=== PATIENT | female | born 1990 | race American Indian/Alaskan Native ===

== ENCOUNTER 2018-02-23 12:46 | Emergency (ER) | payer MEDICARE, MEDICAID ==
[2018-02-23 12:46] VITALS: BMI 25.7
[2018-02-23 13:28] LABS: SQUAMOUS EPITHIAL 15 /hpf (0-5); URINE BACTERIA MANY (<OCC); URINE BILIRUBIN NEGATIVE (NEGATIVE); URINE BLOOD NEGATIVE (NEGATIVE); URINE CLARITY Hazy (Clear); URINE COLOR Yellow (YELLOW); URINE GLUCOSE (UA) NORMAL (Normal); URINE LEUKOCYTE ESTERASE TRACE Leu/uL (Negative); URINE PROTEIN NEGATIVE (NEGATIVE); URINE UROBILINOGEN NORMAL mg/dL (0.2-1.0)
[2018-02-23 13:29] LABS: HCG,QUALITATIVE URINE POSITIVE (NEGATIVE)
[2018-02-23 13:48] LABS: BASO # 0.1 K/uL (0.0-0.2); BASO % 0.7 % (0.0-2.0); EOS # 0.1 K/uL (0.0-0.7); HEMOGLOBIN 11.6 g/dL (11.0-16.0); LYMPH # 2.1 K/uL (1.0-4.3); LYMPH % 25.8 % (20.0-40.0); MEAN CELL VOLUME 83.3 fL (81.0-99.0); MEAN CORPUSCULAR HEMOGLOBIN 28.3 pg (27.0-31.0); MEAN CORPUSCULAR HGB CONC 33.9 g/dL (33.0-37.0); MEAN PLATELET VOLUME 8.5 fL (7.2-11.7); MONO # 0.5 K/uL (0.0-0.8); MONO % 6.2 % (0.0-10.0); NEUT # 5.4 K/uL (1.8-7.0); NEUT % 66.3 % (50.0-75.0); RBC 4.1 Mil/uL (3.80-5.20); RED CELL DISTRIBUTION WIDTH 16.9 % (11.5-14.5); WHITE BLOOD COUNT 8.1 K/uL (4.8-10.8)
[2018-02-23 14:06] LABS: ALB/GLOB RATIO 1.2 (1.0-2.1); ALT/SGPT 58 U/L (9-52); AST/SGOT 31 U/L (14-36); BLOOD UREA NITROGEN 9 mg/dL (7-17); CALCIUM 8.9 mg/dl (8.6-10.4); GFR NON-AFRICAN AMERICAN > 60
--- NOTE | 2018-02-23 14:16 | C.PDOC ---
History Of Present Illness 28 y/o female presents to the ER complaining of light vaginal spotting which has been present since yesterday. Patient states that she took a urine test at home last week and she found that she was . Patient reports that she wants to know how far long she is in her because she is considering have an . She notes that she has an appointment with her doctor in 2 days. She is complaining of mild abdominal pain, mainly in the epigastric region. Denies having dysuria, hematuria, nausea, vomiting, fever, and chills. Time Seen by Provider: 02/23/18 12:54 Chief Complaint (Nursing): Female Genitourinary History Per: Patient History/Exam Limitations: no limitations Onset/Duration Of Symptoms: Days Current Symptoms Are (Timing): Still Present Severity: Moderate Past Medical History Reviewed: Historical Data, Nursing Documentation, Vital Signs Vital Signs: Last Vital Signs Temp 98.5 F 02/23/18 15:21 Pulse 90 02/23/18 15:21 Resp 18 02/23/18 15:21 BP 111/77 02/23/18 15:21 Pulse Ox 99 02/23/18 15:21 - Medical History PMH: Asthma, Seizures (EPILEPSY) Surgical History: Cholecystectomy Family History: States: No Known Family Hx - Social History Hx Alcohol Use: Yes Hx Substance Use: Yes - Immunization History Hx Tetanus Toxoid Vaccination: No Hx Influenza Vaccination: Yes Hx Pneumococcal Vaccination: No Review Of Systems Except As Marked, All Systems Reviewed And Found Negative. Constitutional: Negative for: Fever, Chills Gastrointestinal: Positive for: Abdominal Pain (mild ). Negative for: Nausea, Vomiting, Diarrhea Genitourinary: Positive for: Other (vaginal spotting). Negative for: Dysuria, Hematuria Physical Exam - Physical Exam Appears: Non-toxic, No Acute Distress Skin: Normal Color, Warm, Dry Head: Atraumatic, Normacephalic Eye(s): bilateral: Normal Inspection Nose: Normal Oral Mucosa: Moist Neck: Supple Chest: Symmetrical Cardiovascular: Rhythm Regular Respiratory: Normal Breath Sounds, No Rales, No Rhonchi, No Wheezing Gastrointestinal/Abdominal: Normal Exam, Soft, No Tenderness, No Guarding, No Rebound Neurological/Psych: Oriented x3, Normal Speech ED Course And Treatment - Laboratory Results Result Diagrams: 02/23/18 13:40 02/23/18 13:40 O2 Sat by Pulse Oximetry: 100 (RA) Pulse Ox Interpretation: Normal - CT Scan/US US- OB Other Rad Studies (CT/US): Read By Radiologist, Radiology Report Reviewed CT/US Interpretation: Date of service: 02/23/18. Ultrasound-early OB. Indication: , spotting. Comparison: None available. Technique: Real- time transabdominal pelvic ultrasound was performed. In addition a transvaginal pelvic ultrasound was necessary to better depict pelvic anatomy. Findings: The uterus measures approximately 10.0 x 5.1 x 6.9 cm. Anteverted. Probable uterine fibroids including 3.4 cm and 2.4 cm posterior uterus and 1.1 cm mid uterus. Cervix length measures approximately 3.2 cm. There is a single intrauterine fetus present. The gestational sac measures 0.5 cm, too small for gestational age calculation. No evidence of yolk sac or pole at this time. Small pelvic free fluid. The right ovary measures 2.4 x 1.8 x 2.2 cm. The left ovary measures 3.2 x 2.2 x 2.8 cm and contains probable corpus luteal cyst measuring approximately 2.2 x 1.8 x 2.1 cm. Blood flow was demonstrated to both ovaries. Impression: Tiny probable gestational sac which is too small for gestational age calculation. Recommend correlation with quantitative beta HCG and short interval follow-up. Small pelvic free fluid. 2.2 cm probable left ovarian corpus luteal cyst. Uterine fibroids. Advise an anomaly screen at 16-18 weeks gestational age Medical Decision Making Medical Decision Making: Impression: Vaginal Spotting Plan: * Labs * UA * US- OB * Macrobid PO * Tylenol PO Patient with spotting and mild pain. UA shows UTI. Culture sent and treated with Macrobid. All other labs normal and US shows IUP. Patient stable for discharge and given copy of results. Rx for Macrobid Disposition Counseled Patient/Family Regarding: Diagnosis, Need For Followup, Rx Given - Disposition Referrals: [facility] [Outside] [facility] [Outside] [facility] [Outside] Disposition: HOME/ ROUTINE Disposition Time: 15:05 Condition: GOOD Additional Instructions: Follow up with OB or [facility] for further care and evaluation Take antibiotic twice a day for UTI Prescriptions: Nitrofurantoin Macrocrystals [Macrobid] 1 cap PO BID #14 cap Instructions: Urinary Tract Infections in Adults, Tests Forms: [employer] ([place]) - POA Present On Arrival: None - Clinical Impression Clinical Impression: UTI in , Positive test - PA / PREPARER SAMPLES AND REPAIRS / Resident Statement MD/DO has reviewed & agrees with the documentation as recorded. - Scribe Statement The provider has reviewed the documentation as recorded by the Scribe Adelaide Rome Provider Attestation All medical record entries made by the Scribe were at my direction and personally dictated by me. I have reviewed the chart and agree that the record accurately reflects my personal performance of the history, physical exam, medical decision making, and the department course for this patient. I have also personally directed, reviewed, and agree with the discharge instructions and disposition.
--- NOTE | 2018-02-23 14:52 | US ---
Date of service: 02/23/18 Ultrasound-early OB Indication: , spotting Comparison: None available Technique: Real-time transabdominal pelvic ultrasound was performed. In addition a transvaginal pelvic ultrasound was necessary to better depict pelvic anatomy. Findings: The uterus measures approximately 10.0 x 5.1 x 6.9 cm. Anteverted. Probable uterine fibroids including 3.4 cm and 2.4 cm posterior uterus and 1.1 cm mid uterus. Cervix length measures approximately 3.2 cm. There is a single intrauterine fetus present. The gestational sac measures 0.5 cm, too small for gestational age calculation. No evidence of yolk sac or pole at this time. Small pelvic free fluid. The right ovary measures 2.4 x 1.8 x 2.2 cm. The left ovary measures 3.2 x 2.2 x 2.8 cm and contains probable corpus luteal cyst measuring approximately 2.2 x 1.8 x 2.1 cm. Blood flow was demonstrated to both ovaries. Impression: Tiny probable gestational sac which is too small for gestational age calculation. Recommend correlation with quantitative beta HCG and short interval follow-up. Small pelvic free fluid. 2.2 cm probable left ovarian corpus luteal cyst. Uterine fibroids. Advise an anomaly screen at 16-18 weeks gestational age
[2018-02-23 15:22] VITALS: BP 111/77; PULSE 90; RESP 18; TEMP 98.5
[2018-02-23 18:34] VITALS: O2SAT 100
== END 2018-02-23 15:25 | disposition home or self-care (01) ==
LOC: C.ER 12:46
DX: O23.41 Unspecified infection of urinary tract in pregnancy, first trimester (principal); Z3A.00 Weeks of gestation of pregnancy not specified